=== PATIENT | female | born 1980 | race Caucasian/White ===

== ENCOUNTER 2022-09-29 21:05 | Inpatient (IN) | payer OTHER ==
[~2022-09-29] VITALS: Ht 175.3 cm; Wt 121.1 kg
[2022-09-30] MEDS ORDERED: PENTOXIFYLLINE400 MG (11:20)
[2022-09-30] MEDS ORDERED: MONTELUKAST SOD10 MG (11:20)
[2022-09-30] MEDS ORDERED: TRI-LO-SPRINTE1 EACH (11:20)
[2022-09-30] MEDS ORDERED: FUROSEMIDE40 MG (11:20)
[2022-09-30] MEDS ORDERED: LORAZEPAM0.5 MG (11:21)
[2022-09-30] MEDS ORDERED: SPIRONOLACTONE25 MG (11:21)
[2022-09-30] MEDS ORDERED: HYDROCHLOROTH12.5 MG (11:21)
[2022-09-30] MEDS ORDERED: BUSPIRONE HCL5 MG (11:21)
[2022-10-08] MEDS ORDERED: INTEGRA PLUS C1 EACH PO (11:08)
== END 2022-10-08 12:52 | disposition home or self-care (01) | DRG 603 ==
LOC: ER 21:05 → MEDI 09-30 08:56
PROVIDERS: ADMIT Internal Medicine; ATTEND Internal Medicine
PROC: BW4GZZZ Ultrasonography of Pelvic Region (ICD-10-PCS; principal; 2022-10-05)
DX: L03.115 Cellulitis of right lower limb (principal); I82.811 Embolism and thrombosis of superficial veins of right lower extremity; I73.9 Peripheral vascular disease, unspecified; J45.909 Unspecified asthma, uncomplicated; N39.8 Other specified disorders of urinary system

== ENCOUNTER 2022-10-29 20:10 | Emergency (ER) | payer OTHER ==
[~2022-10-29] VITALS: Ht 180.3 cm; Wt 95.3 kg
[~2022-10-29 20:10] MED LIST: BUSPIRONE HCL5 MG; FUROSEMIDE40 MG; HYDROCHLOROTH12.5 MG; INTEGRA PLUS C1 EACH PO; LORAZEPAM0.5 MG; MONTELUKAST SOD10 MG; PENTOXIFYLLINE400 MG; SPIRONOLACTONE25 MG; TRI-LO-SPRINTE1 EACH
== END 2022-10-30 18:23 | disposition home or self-care (01) ==
LOC: ER 20:10
DX: M79.662 Pain in left lower leg (principal)